=== PATIENT | male | born 1990 | race Caucasian/White ===

== ENCOUNTER 2019-03-07 07:00 | Inpatient (IN) | payer OTHER ==
[~2019-03-07] VITALS: Ht 177.8 cm; Wt 127.9 kg
[2019-03-07] VITALS (24 sets, daily range): BP systolic 119–185; BP diastolic 60–86; PULSE 70–97; RESP 11–25; Ht 177.8 cm; Wt 127.9 kg
[~2019-03-07 07:00] MED LIST: METF500T24 PO
[2019-03-07] MEDS: SOD CHLORIDE 0.9% 1,000 ML IV SCH (10:30)
[2019-03-07] MEDS ORDERED: DIPHENHYDRAMINE 50 MG INJ IV PRN ×2 (12:00)
[2019-03-07] MEDS ORDERED: LABETALOL HCL 20MG INJ IV PRN (12:00)
[2019-03-07] MEDS ORDERED: CEPASTAT LOZENGE MT PRN (12:00)
[2019-03-07] MEDS ORDERED: CYCLOBENZAPRINE 10 MG TAB PO PRN (12:00)
[2019-03-07] MEDS ORDERED: hydrALAzine 20 MG INJ IV PRN (12:00)
[2019-03-07] MEDS ORDERED: HYDROmorphONE 1 MG/5 ML IV SYRINGE IV PRN ×2 (12:00)
[2019-03-07] MEDS ORDERED: BISACODYL 10 MG SUPP PR PRN (12:00)
[2019-03-07] MEDS ORDERED: FENTAnyl 50 MCG/ML VIAL IV PRN ×3 (12:00)
[2019-03-07] MEDS ORDERED: DESFLURANE 15 MIN ONE (12:00)
[2019-03-07] MEDS ORDERED: CEFAZOLIN 1 GM/50 ML (PMX) 50 ML IVPB SCH (12:00)
[2019-03-07] MEDS ORDERED: NALOXONE (0.4 MG/ML) INJ IV PRN (12:00)
[2019-03-07] MEDS ORDERED: ONDANSETRON 4 MG INJ IV PRN ×2 (12:00)
[2019-03-07] MEDS ORDERED: HYDROmorphONE 0.5 MG/0.5 ML SYG IV PRN (12:00)
[2019-03-07] MEDS ORDERED: DIPHENHYDRAMINE 25 MG CAP PO PRN (12:00)
[2019-03-07] MEDS ORDERED: MEPERIDINE 25 MG INJ IV PRN (12:00)
[2019-03-07] MEDS ORDERED: AL HYDROX/MG HYDROX/SIMETH 30 ML CUP PO PRN (12:00)
[2019-03-07] MEDS ORDERED: HYDROCODONE/APAP (10/325) TAB PO PRN (12:00)
[2019-03-07] MEDS ORDERED: ACETAMINOPHEN 325 MG TAB PO PRN (12:00)
[2019-03-07] MEDS ORDERED: CEFAZOLIN 1 GM INJ ONE (12:02)
[2019-03-07] MEDS ORDERED: PROPOFOL 20 ML ONE (12:02)
[2019-03-07] MEDS ORDERED: ROCURONIUM 50 MG INJ ONE ×2 (12:02→12:46)
[2019-03-07] MEDS ORDERED: METOCLOPRAMIDE 10 MG INJ ONE (12:03)
[2019-03-07] MEDS ORDERED: ONDANSETRON 4 MG INJ ONE (12:03)
[2019-03-07] MEDS ORDERED: MIDAZOLAM 1 MG/ML 2 ML INJ ONE (12:03)
[2019-03-07] MEDS ORDERED: HYDROmorphONE 2 MG/ML SYG ONE (12:11)
[2019-03-07] MEDS ORDERED: THROMBIN 5000 UNIT (RECOTHROM) VIAL ONE ×2 (12:22→12:38)
[2019-03-07] MEDS ORDERED: GELATIN SIZE 100 SPONGE ONE (12:22)
[2019-03-07] MEDS ORDERED: BUPIVACAINE 0.25%/EPI (SDV) 10 ML INJ ONE (12:23)
[2019-03-07] MEDS ORDERED: POLYMYXIN/BACITRACIN 1L IRRIG ONE (12:23)
[2019-03-07] MEDS ORDERED: HEPARIN 1000 UNITS/ML 10 ML INJ ONE (12:30)
[2019-03-07] MEDS ORDERED: METOPROLOL 5 MG INJ ONE (12:34)
[2019-03-07] MEDS ORDERED: NEOSTIGMINE 3 MG/3 ML SYRINGE ONE (12:34)
[2019-03-07] MEDS ORDERED: CA CHLORIDE (GM) 10% 10 ML INJ ONE (13:21)
[2019-03-07] MEDS: 1/2 NS + KCL 20 MEQ 1,000 ML IV SCH ×2 (16:11→22:44)
[2019-03-07] MEDS: INSULIN ASPART [NOVOLOG] 3 ML PEN SC SCH ×2 (17:55→21:00)
[2019-03-07] MEDS ORDERED: GLUCOSE GEL 15 GRAM TUBE PO PRN ×2 (18:30)
[2019-03-07] MEDS ORDERED: DEXTROSE 50% 50 ML SYRINGE IV PRN ×2 (18:30)
[2019-03-07] MEDS ORDERED: GLUCAGON 1 MG INJ IM PRN (18:30)
[2019-03-07] MEDS ORDERED: GLUCOSE GEL 15 GRAM TUBE BUCCAL PRN (18:30)
[2019-03-07] MEDS: CEFAZOLIN 1 GM/50 ML (PMX) 50 ML IVPB SCH (19:56)
[2019-03-07] MEDS: HYDROCODONE/APAP (10/325) TAB PO PRN (19:56)
[2019-03-07] MEDS: LOSARTAN 25 MG TAB PO SCH (21:05)
[2019-03-07] MEDS: DOCUSATE SODIUM 100 MG CAP PO SCH (21:05)
[2019-03-08 00:23] VITALS: BP 129/63; RESP 18
[2019-03-08] MEDS: CEFAZOLIN 1 GM/50 ML (PMX) 50 ML IVPB SCH ×2 (04:27→12:10)
[2019-03-08 07:47] VITALS: BP 133/62; PULSE 69; RESP 20
[2019-03-08] MEDS: INSULIN ASPART [NOVOLOG] 3 ML PEN SC SCH ×3 (07:50→17:55)
[2019-03-08] MEDS: HYDROCODONE/APAP (10/325) TAB PO PRN ×3 (08:00→19:39)
[2019-03-08] MEDS: DOCUSATE SODIUM 100 MG CAP PO SCH (08:57)
[2019-03-08] MEDS: LOSARTAN 25 MG TAB PO SCH (08:57)
[2019-03-08] MEDS: 1/2 NS + KCL 20 MEQ 1,000 ML IV SCH (09:00)
[2019-03-08] MEDS ORDERED: metFORMIN 500 MG TAB PO SCH (09:00)
[2019-03-08] MEDS: SOD CHLORIDE 0.9% 1,000 ML IV SCH (10:30)
[2019-03-08 15:16] VITALS: BP 138/73; PULSE 72; RESP 20
== END 2019-03-08 20:00 | disposition home or self-care (01) | DRG 519 ==
LOC: EDSTATUS 07:00 → REC 09:46 → MS1 16:02
PROVIDERS: ADMIT Specialist; ATTEND Specialist
PROC: 01NB3ZZ Release Lumbar Nerve, Percutaneous Approach (ICD-10-PCS; 2019-03-07)
PROC: 0SB23ZZ Excision of Lumbar Vertebral Disc, Percutaneous Approach (ICD-10-PCS; principal; 2019-03-07 12:00)
DX: M51.16 Intervertebral disc disorders with radiculopathy, lumbar region (principal); Z68.41 Body mass index [BMI] 40.0-44.9, adult; E66.01 Morbid (severe) obesity due to excess calories; E11.9 Type 2 diabetes mellitus without complications; I10 Essential (primary) hypertension
CPT/HCPCS: 72020; 80048; 80061; 82962; 83036; 83735; 85025; 86999; 88304; 97110; 97116; 97161; 97530; J0360; J0690; J1170; J1644; J1815; J2175; J2250; J2405; J2710; J2765; J3010; J3480; J7030